=== PATIENT | female | born 1945 | race Caucasian/White ===

== ENCOUNTER 2017-05-04 14:49 | Inpatient (IN) | payer MEDICARE ==
[~2017-05-04] VITALS: Ht 160 cm; Wt 48.1 kg
[2017-05-04 15:59] LABS: BASOPHILS % (AUTO) 0.4 % (0.0-2.0); EOSINOPHILS % (AUTO) 0.5 % (0.0-6.0); HEMATOCRIT 42 % (33-45); HEMOGLOBIN 14.2 g/dL (11.5-14.8); LYMPHOCYTES # (AUTO) 1.2 /CMM (0.8-4.8); LYMPHOCYTES % (AUTO) 20.4 % (20.0-44.0); MEAN CORPUSCULAR HEMOGLOBIN 31 PG (26.0-33.0); MEAN CORPUSCULAR HGB CONC 34 g/dl (31.0-36.0); MEAN CORPUSCULAR VOLUME 91 fL (82-100); MONOCYTES # (AUTO) 0.3 /CMM (0.1-1.30); MONOCYTES % (AUTO) 4.9 % (2.0-12.0); NEUTROPHILS # (AUTO) 4.2 /CMM (1.8-8.9); NEUTROPHILS % (AUTO) 73.8 % (43.0-81.0); PLATELET COUNT (AUTO) 256 /CMM (150-450); RDW COEFFICIENT OF VARIATION 12.4 (11.5-15.0); RED BLOOD CELL COUNT(AUTO) 4.61 MIL/uL (4.0-5.2); WHITE BLOOD COUNT (AUTO) 5.7 K/uL (4.3-11.0)
[2017-05-04 16:08] LABS: CARBON DIOXIDE 24 mmol/L (21-32); CHLORIDE 105 mmol/L (98-107); CREATININE 0.9 mg/dL (0.6-1.3); GLUCOSE 116 mg/dL (74-106); POTASSIUM 3.6 mmol/L (3.5-5.1); SODIUM SERUM 139 mmol/L (136-145); UREA NITROGEN, BLOOD 13 mg/dL (7-18)
[2017-05-04 16:15] LABS: ALANINE AMINOTRANSFERASE 20 U/L (12-78); ALCOHOL, BLOOD < 3 mg/dL (0-0); ALKALINE PHOSPHATASE 41 U/L (46-116); ASPARTATE AMINOTRANSFERASE 22 U/L (15-37); BILIRUBIN,DIRECT 0.1 mg/dL (0.0-0.2); BILIRUBIN,TOTAL 0.4 mg/dL (0.2-1.0); SALICYLATE 9.3 mg/dL (2.8-20.0)
[2017-05-04 16:17] LABS: ACETAMINOPHEN 0 ug/ml (10-30)
[2017-05-04] MEDS ORDERED: RISP1TAB7 PO (16:48)
[2017-05-04 17:00] VITALS: BP 155/105
[2017-05-04] MEDS ORDERED: LORAZEPAM 0.5 MG TABLET PO PRN (17:30)
[2017-05-04] MEDS ORDERED: ACETAMINOPHEN 325 MG TABLET PO PRN (17:30)
[2017-05-04] MEDS ORDERED: TEMAZEPAM 7.5 MG CAPSULE PO PRN (17:30)
[2017-05-04] MEDS ORDERED: MAGNESIUM HYDROXIDE 30 ML UDC PO PRN (17:30)
[2017-05-04] MEDS ORDERED: MAG HYDROX/AL HYDROX/SIMETH 30 ML UDC PO PRN (17:30)
[2017-05-04] MEDS: OLANZAPINE 5 MG/TAB.RAPDIS PO SCH (19:00)
[2017-05-04 20:13] VITALS: BP 141/69
[2017-05-05 08:00] VITALS: BP 130/75
[2017-05-05] MEDS: OLANZAPINE 5 MG/TAB.RAPDIS PO SCH ×2 (09:00→17:00)
[2017-05-05] MEDS ORDERED: OLANZAPINE 10 MG VIAL IM ONE (13:30)
[2017-05-05 16:00] VITALS: BP 120/83
[2017-05-05 20:00] VITALS: BP 100/58
[2017-05-06 08:00] VITALS: BP 102/64
[2017-05-06] MEDS: OLANZAPINE 5 MG/TAB.RAPDIS PO SCH ×2 (08:07→16:01)
[2017-05-06 16:30] VITALS: BP 102/76
[2017-05-06 20:00] VITALS: BP 96/55
[2017-05-07 08:00] VITALS: BP_SYST 102; BP_SYST 116; BP_DIAS 61; BP_DIAS 65
[2017-05-07] MEDS: OLANZAPINE 5 MG/TAB.RAPDIS PO SCH ×2 (09:00→17:00)
[2017-05-07 16:25] VITALS: BP 106/54
[2017-05-07 20:00] VITALS: BP 131/75
[2017-05-08] MEDS: OLANZAPINE 5 MG/TAB.RAPDIS PO SCH ×2 (08:50→17:00)
[2017-05-08 09:17] VITALS: BP 103/57
[2017-05-08 16:28] VITALS: BP 106/58
[2017-05-08 21:07] VITALS: BP 103/89
[2017-05-09 08:00] VITALS: BP 112/57
[2017-05-09] MEDS: OLANZAPINE 5 MG/TAB.RAPDIS PO SCH ×2 (08:46→17:00)
[2017-05-09 16:00] VITALS: BP 117/66
[2017-05-09 20:25] VITALS: BP 120/75
[2017-05-10 08:00] VITALS: BP 127/82
[2017-05-10] MEDS: OLANZAPINE 5 MG/TAB.RAPDIS PO SCH ×2 (08:28→17:00)
[2017-05-10 16:00] VITALS: BP 109/64
[2017-05-10] MEDS ORDERED: HALOPERIDOL LACTATE INJ 5 MG/ML VIAL IM PRN (18:30)
[2017-05-10] MEDS ORDERED: risperiDONE-M 0.5 MG TAB.RAPDIS PO PRN (18:30)
[2017-05-10] MEDS: risperiDONE-M 0.5 MG TAB.RAPDIS PO SCH (18:33)
[2017-05-10] MEDS: DIVALPROEX SODIUM 125 MG CAP.SPRINK PO SCH ×2 (18:33→20:18)
[2017-05-10 19:51] VITALS: BP 110/66
[2017-05-11 08:00] VITALS: BP 102/56
[2017-05-11] MEDS: risperiDONE-M 0.5 MG TAB.RAPDIS PO SCH ×2 (09:30→17:10)
[2017-05-11] MEDS: DIVALPROEX SODIUM 125 MG CAP.SPRINK PO SCH ×2 (09:30→21:19)
[2017-05-11 16:00] VITALS: BP 106/64
[2017-05-11 19:59] VITALS: BP 101/54
[2017-05-12 08:40] VITALS: BP 100/53
[2017-05-12] MEDS: DIVALPROEX SODIUM 125 MG CAP.SPRINK PO SCH (09:06)
[2017-05-12] MEDS: risperiDONE-M 0.5 MG TAB.RAPDIS PO SCH ×2 (09:06→20:19)
[2017-05-12] MEDS: BENZTROPINE MESYLATE (1 MG) 1 MG TABLET PO SCH ×2 (12:29→16:10)
[2017-05-12 16:15] VITALS: BP 101/59
[2017-05-12] MEDS ORDERED: risperiDONE-M 0.5 MG TAB.RAPDIS PO ONE (17:00)
[2017-05-12 20:00] VITALS: BP 102/53
[2017-05-12] MEDS ORDERED: DIVALPROEX SODIUM 125 MG CAP.SPRINK PO ONE (21:00)
[2017-05-13 08:00] VITALS: BP 105/59
[2017-05-13] MEDS: BENZTROPINE MESYLATE (1 MG) 1 MG TABLET PO SCH ×2 (09:09→17:04)
[2017-05-13 16:00] VITALS: BP 106/65
[2017-05-13] MEDS: DIVALPROEX SODIUM 250 MG TABLET.DR PO SCH (17:04)
[2017-05-13] MEDS ORDERED: DIVALPROEX SODIUM 500 MG TABLET.DR PO SCH (18:00)
[2017-05-13 20:00] VITALS: BP 110/64
[2017-05-13] MEDS: risperiDONE-M 0.5 MG TAB.RAPDIS PO SCH (20:24)
[2017-05-14 08:00] VITALS: BP 99/54
[2017-05-14 08:16] LABS: BASOPHILS % (AUTO) 0.3 % (0.0-2.0); EOSINOPHILS # (AUTO) 0.1 /CMM (0.0-0.7); EOSINOPHILS % (AUTO) 1.7 % (0.0-6.0); HEMATOCRIT 37 % (33-45); HEMOGLOBIN 12.6 g/dL (11.5-14.8); LYMPHOCYTES # (AUTO) 1.6 /CMM (0.8-4.8); LYMPHOCYTES % (AUTO) 33.8 % (20.0-44.0); MEAN CORPUSCULAR HEMOGLOBIN 32 PG (26.0-33.0); MEAN CORPUSCULAR HGB CONC 35 g/dl (31.0-36.0); MEAN CORPUSCULAR VOLUME 93 fL (82-100); MONOCYTES # (AUTO) 0.4 /CMM (0.1-1.30); MONOCYTES % (AUTO) 7.9 % (2.0-12.0); NEUTROPHILS # (AUTO) 2.7 /CMM (1.8-8.9); NEUTROPHILS % (AUTO) 56.3 % (43.0-81.0); PLATELET COUNT (AUTO) 221 /CMM (150-450); RDW COEFFICIENT OF VARIATION 12.8 (11.5-15.0); RED BLOOD CELL COUNT(AUTO) 3.96 MIL/uL (4.0-5.2); WHITE BLOOD COUNT (AUTO) 4.8 K/uL (4.3-11.0)
[2017-05-14] MEDS: BENZTROPINE MESYLATE (1 MG) 1 MG TABLET PO SCH ×2 (08:21→16:35)
[2017-05-14 08:45] LABS: ALBUMIN 2.9 g/dL (3.4-5.0); BILIRUBIN,TOTAL 0.4 mg/dL (0.2-1.0); CALCIUM, SERUM 8.6 mg/dL (8.5-10.1); CREATININE 0.6 mg/dL (0.6-1.3); POTASSIUM 4.1 mmol/L (3.5-5.1)
[2017-05-14 15:57] VITALS: BP 103/57
[2017-05-14] MEDS: DIVALPROEX SODIUM 250 MG TABLET.DR PO SCH (16:35)
[2017-05-14 20:00] VITALS: BP 109/55
[2017-05-14] MEDS: risperiDONE-M 0.5 MG TAB.RAPDIS PO SCH (20:17)
[2017-05-15 08:16] VITALS: BP 100/58
[2017-05-15] MEDS: BENZTROPINE MESYLATE (1 MG) 1 MG TABLET PO SCH ×2 (09:00→17:00)
[2017-05-15 15:25] VITALS: BP 117/71
[2017-05-15] MEDS: DIVALPROEX SODIUM 250 MG TABLET.DR PO SCH (17:00)
[2017-05-15 19:31] VITALS: BP 114/66
[2017-05-15] MEDS: risperiDONE-M 0.5 MG TAB.RAPDIS PO SCH (20:52)
[2017-05-16 08:00] VITALS: BP 100/52
[2017-05-16] MEDS: BENZTROPINE MESYLATE (1 MG) 1 MG TABLET PO SCH ×2 (08:55→17:06)
[2017-05-16 16:00] VITALS: BP 100/60
[2017-05-16] MEDS: DIVALPROEX SODIUM 250 MG TABLET.DR PO SCH (17:07)
[2017-05-16 19:39] VITALS: BP 106/54
[2017-05-16] MEDS: risperiDONE-M 0.5 MG TAB.RAPDIS PO SCH (21:04)
[2017-05-17 08:00] VITALS: BP 106/61
[2017-05-17] MEDS: BENZTROPINE MESYLATE (1 MG) 1 MG TABLET PO SCH ×2 (08:09→17:43)
[2017-05-17 16:00] VITALS: BP 100/60
[2017-05-17] MEDS: DIVALPROEX SODIUM 250 MG TABLET.DR PO SCH (17:43)
[2017-05-17 20:55] VITALS: BP 151/62
[2017-05-17] MEDS: risperiDONE-M 0.5 MG TAB.RAPDIS PO SCH (21:04)
[2017-05-18 08:00] VITALS: BP 100/55
[2017-05-18] MEDS: BENZTROPINE MESYLATE (1 MG) 1 MG TABLET PO SCH ×2 (08:12→17:23)
[2017-05-18] MEDS ORDERED: HALOPERIDOL 1 MG TABLET PO ONE (09:30)
[2017-05-18] MEDS ORDERED: HALOPERIDOL DECANOATE IM 100 MG/ML AMPUL IM ONE (15:00)
[2017-05-18 16:00] VITALS: BP 101/58
[2017-05-18] MEDS: DIVALPROEX SODIUM 250 MG TABLET.DR PO SCH (17:23)
== END 2017-05-18 15:50 | DRG 885 ==
LOC: ER 14:59 → GPS 17:04
PROVIDERS: ADMIT Psychiatry & Neurology Psychosomatic Medicine; ATTEND Internal Medicine
DX: F25.0 Schizoaffective disorder, bipolar type (principal); F23 Brief psychotic disorder; Z91.14 Patient's other noncompliance with medication regimen; F31.9 Bipolar disorder, unspecified
CPT/HCPCS: 36415; 80048-TC; 80053-TC; 80076-TC; 80164-TC; 85025-TC; G0480; J1631; J3490